=== PATIENT | male | born 1965 | race Caucasian/White ===

== ENCOUNTER 2023-10-02 17:47 | Emergency (ER) | payer OTHER ==
[~2023-10-02] VITALS: Ht 170.2 cm; Wt 81.6 kg
[2023-10-02] MEDS ORDERED: ACETAMINOPHEN 325 MG TABLET PO ONE (18:00)
[2023-10-02 18:14] VITALS: TEMP 98.6
[2023-10-02] MEDS ORDERED: ACETAMINOPHEN 325 MG TABLET ONE (18:34)
[2023-10-02] MEDS ORDERED: KETO10TA2 PO (20:39)
[2023-10-02 20:49] VITALS: BP 148/88; O2SAT 99
== END 2023-10-02 20:49 | disposition home or self-care (01) ==
LOC: ER 17:51
DX: M25.552 Pain in left hip (principal); M79.662 Pain in left lower leg; V04.90XA Pedestrian on foot injured in collision with heavy transport vehicle or bus, unspecified whether traffic or nontraffic accident, initial encounter; Y93.89 Activity, other specified; Y92.89 Other specified places as the place of occurrence of the external cause; Y99.8 Other external cause status
CPT/HCPCS: 73502; 73552